=== PATIENT | female | born 1980 | race Caucasian/White ===

== ENCOUNTER 2016-06-28 16:00 | Emergency (ER) | payer OTHER ==
--- NOTE | ~2016-06-28 | CR58 ---
[facility] A Service of [facility] & [facility] RADIOLOGY TEXT RESULTS PATIENT: AUNG RAMIREZ LOCATION: CFTX : 79 UNIT #: [id number] AGE: [address]: KATARZYNA MONTELONGO SEX: F ORDER DR: [id number] [facility] [address] [place], [place] [address] [id number] E MR#: [id number] Acc #: [id number] NAME: AUNG RAMIREZ : 1980 SEX: F STUDY DATE/TIME: 06/28/2016 15:36 UNIT: CFTX ROOM: STUDY DESCRIPTION: CR Cervical Spine 2 or 3 Views Attending Physician: Katarzyna Montelongo Aprn Ordering Physician: Ed Doctor [id number] [facility] Primary Care Physician: Primary Care Physician No MEDICAL IMAGING REPORT This report is preliminary unless electronic signature is present EXAM Cervical spine 3 views HISTORY Neck pain after fall and neck injury today. FINDINGS AP and lateral projections of the cervical spine show satisfactory preservation of the cervical lordosis. The cervical soft tissues are normal. All anterior and posterior elements in the cervical area are anatomically normal without identifiable fracture, dislocation, malignant lytic or sclerotic change, or arthritis. There is no congenital defect apparent. IMPRESSION Normal cervical spine. Dictated by... Shashi Loredo M.D. THIS IS AN ELECTRONICALLY VERIFIED REPORT Shashi Loredo M.D. at 06/29/2016 1:55 PM TIFFANY/joaquin TD: 06/29/2016 09:05 JOB #: [id number] MEDICAL IMAGING REPORT COPY
--- NOTE | ~2016-06-28 | CR282 ---
[facility] A Service of [facility] & [facility] RADIOLOGY TEXT RESULTS PATIENT: AUNG RAMIREZ LOCATION: CFTX : 79 UNIT #: [id number] AGE: [address]: KATARZYNA MONTELONGO SEX: F ORDER DR: [id number] [facility] [address] [place], [place] [address] [id number] E MR#: [id number] Acc #: [id number] NAME: AUNG RAMIREZ : 1980 SEX: F STUDY DATE/TIME: 06/28/2016 15:45 UNIT: CFTX ROOM: STUDY DESCRIPTION: CR Wrist Min 3 View Rt Attending Physician: Katarzyna Montelongo Aprn Ordering Physician: Ed Doctor [id number] [facility] Primary Care Physician: Primary Care Physician No MEDICAL IMAGING REPORT This report is preliminary unless electronic signature is present EXAM Right wrist 3 views HISTORY Wrist pain after a fall and wrist injury today. FINDINGS Wrist evaluation in multiple projections shows normal mineralization of the bony structures about the wrist and satisfactory articular relationship of the radius and ulna to the proximal carpal row and of the distal carpal segments to the metacarpal bases. There is no indication of fracture or dislocation, and no soft tissue radiopaque foreign body is present. No congenital defects are apparent. IMPRESSION Normal right wrist. Dictated by... Shashi Loredo M.D. THIS IS AN ELECTRONICALLY VERIFIED REPORT Shashi Loredo M.D. at 06/29/2016 1:55 PM TIFFANY/joaquin TD: 06/29/2016 09:11 JOB #: [id number] MEDICAL IMAGING REPORT COPY
--- NOTE | ~2016-06-28 | CT71 ---
[facility] A Service of [facility] / [facility] RADIOLOGY TEXT RESULTS PATIENT: AUNG RAMIREZ LOCATION: CFTX : 79 UNIT #: [id number] AGE: [address]: KATARZYNA MONTELONGO SEX: F ORDER DR: [id number] [facility] [address] [place], [place] [address] [id number] E MR#: [id number] Acc #: [id number] NAME: AUNG RAMIREZ : 1980 SEX: F STUDY DATE/TIME: 06/28/2016 18:17 UNIT: CFTX ROOM: STUDY DESCRIPTION: CT Head Wo Contrast Attending Physician: Katarzyna Montelongo Aprn Ordering Physician: Ed Doctor [id number] [facility] Primary Care Physician: Primary Care Physician No MEDICAL IMAGING REPORT This report is preliminary unless electronic signature is present EXAM CT head, 06/28/2016 HISTORY Fall earlier today. Denies loss of consciousness. Fell 6 hours ago. Injury to back of head. No loss of consciousness. Cerebral aneurysm, left middle cerebral artery. TECHNIQUE This CT exam was performed with one or more of the following radiation dose reduction techniques: automatic exposure control, adjustment of mA and/or kV according to patient size, and iterative reconstruction. FINDINGS CT head performed skull base through vertex without intravenous contrast. Comparison 04/21/2012. Brainstem unremarkable. Cerebellum and cerebral hemispheres show normal kaba matter-white matter differentiation. No hemorrhage. No evidence of acute cortical ischemia. Midline structures are nondisplaced. Basal ganglia are intact. The ventricles, cisterns, sulci normal in size and contour. No intra or extraaxial mass effect or abnormal intracranial fluid collection. The visualized intraorbital soft tissues are unremarkable. The visualized paranasal sinuses and mastoid air cells are clear. The extracranial soft tissues show no definite acute abnormality. IMPRESSION 1. Brain appears normal. If patient has ongoing neurologic symptoms, consider followup imaging. 2. No fracture. 3. No indication of extracranial traumatic soft tissue abnormality. Dictated by... Duong Cleary M.D. [facility] A Service [facility] RADIOLOGY TEXT RESULTS PATIENT: AUNG RAMIREZ LOCATION: CFTX : 79 UNIT #: [id number] AGE: [address]: KATARZYNA MONTELONGO SEX: F ORDER DR: THIS IS AN ELECTRONICALLY VERIFIED REPORT Duong Cleary M.D. at 06/30/2016 4:25 PM Liliana TD: 06/29/2016 11:00 JOB #: [id number] MEDICAL IMAGING REPORT COPY
--- NOTE | ~2016-06-28 | CR142 ---
[facility] A Service of [facility] & [facility] RADIOLOGY TEXT RESULTS PATIENT: AUNG RAMIREZ LOCATION: CFTX : 79 UNIT #: [id number] AGE: [address]: KATARZYNA MONTELONGO SEX: F ORDER DR: [id number] [facility] [address] [place], [place] [address] [id number] E MR#: [id number] Acc #: [id number] NAME: AUNG RAMIREZ : 1980 SEX: F STUDY DATE/TIME: 06/28/2016 15:43 UNIT: CFTX ROOM: STUDY DESCRIPTION: CR Hand Min 3 Views Rt Attending Physician: Katarzyna Montelongo Aprn Ordering Physician: Ed Doctor [id number] [facility] Primary Care Physician: Primary Care Physician No MEDICAL IMAGING REPORT This report is preliminary unless electronic signature is present EXAM Right hand 3 views HISTORY Hand pain after a fall today. FINDINGS AP, lateral, and oblique projections of the hand show good mineralization with normal carpal, metacarpal, and phalangeal anatomy without indication of fracture, dislocation, or soft tissue radiopaque foreign body. IMPRESSION Normal right hand. Dictated by... Shashi Loredo M.D. THIS IS AN ELECTRONICALLY VERIFIED REPORT Shashi Loredo M.D. at 06/29/2016 1:55 PM Terrie TD: 06/29/2016 09:10 JOB #: [id number] MEDICAL IMAGING REPORT COPY
--- NOTE | ~2016-06-28 | CR133 ---
[facility] A Service of [facility] & [facility] RADIOLOGY TEXT RESULTS PATIENT: AUNG RAMIREZ LOCATION: CFTX : 78 UNIT #: [id number] AGE: [address]: KATARZYNA MONTELONGO SEX: F ORDER DR: [id number] [facility] [address] [place], [place] [address] [id number] E MR#: [id number] Acc #: [id number] NAME: AUNG RAMIREZ : 1980 SEX: F STUDY DATE/TIME: 06/28/2016 15:40 UNIT: CFTX ROOM: STUDY DESCRIPTION: CR Forearm 2 View Rt Attending Physician: Katarzyna Montelongo Aprn Ordering Physician: Ed Doctor [id number] [facility] Primary Care Physician: Primary Care Physician No MEDICAL IMAGING REPORT This report is preliminary unless electronic signature is present EXAM Right forearm 2 views HISTORY Arm pain after a fall and arm injury today. FINDINGS AP and lateral views of the forearm show no evidence of fracture or destructive bone lesion. No periosteal elevation is seen. No radiodense foreign bodies are noted. Adjacent soft tissue structures are normal. IMPRESSION Normal right forearm. Dictated by... Shashi Loredo M.D. THIS IS AN ELECTRONICALLY VERIFIED REPORT Shashi Loredo M.D. at 06/29/2016 1:55 PM Terrie TD: 06/29/2016 09:10 JOB #: [id number] MEDICAL IMAGING REPORT COPY
[~2016-06-28 16:00] MED LIST: ALBUTEROL17 GM INH; ANTIVERT PO; BIRTH CONTROL PILL; FLONASE16 GM; HYDROCHLORATHIAZIDE; IMODIUM2 MG PO; PHENERGAN25 M1 PO; PREDNISONE PO; TESSALON200 MG PO; ULTRAM PO; ZITHROMAX PO; ZOFRAN ODT4 MG PO
== END 2016-06-28 19:23 | disposition home or self-care (01) ==
LOC: CFTX 16:00
DX: S63.501A Unspecified sprain of right wrist, initial encounter (principal); S50.11XA Contusion of right forearm, initial encounter; S60.221A Contusion of right hand, initial encounter; Z88.0 Allergy status to penicillin; Z88.2 Allergy status to sulfonamides; W01.0XXA Fall on same level from slipping, tripping and stumbling without subsequent striking against object, initial encounter; Y92.009 Unspecified place in unspecified non-institutional (private) residence as the place of occurrence of the external cause
CPT/HCPCS: 29260; 70450; 72040; 73090; 73110; 73130; 84703; 99284

== ENCOUNTER 2016-08-23 16:08 | Emergency (ER) | payer OTHER ==
--- NOTE | ~2016-08-23 | CT2 ---
[facility] A Service of [facility] & [facility] RADIOLOGY TEXT RESULTS PATIENT: AUNG RAMIREZ LOCATION: [facility] : 79 UNIT #: [id number] AGE: [address]: Jonathan Branham MD SEX: F ORDER DR: [id number] [facility] [address] [place], [place] [address] [id number] E MR#: [id number] Acc #: [id number] NAME: AUNG RAMIREZ : 1980 SEX: F STUDY DATE/TIME: 08/23/2016 17:29 UNIT: CRISTINA ROOM: STUDY DESCRIPTION: CT Abd and Pelv W Cont Attending Physician: Jonathan Branham M.D. Ordering Physician: Jonathan Branham M.D. Primary Care Physician: No Primary Care Physician MEDICAL IMAGING REPORT This report is preliminary unless electronic signature is present EXAM CT abdomen and pelvis without IV contrast. COMPARISON April 30, 2015. INDICATION 36-year-old female with nausea, emesis, diarrhea and periumbilical abdominal pain for [address] exam was performed with one or more of the following radiation dose reduction techniques: automatic exposure control, adjustment of mA and/or kV according to patient size, and iterative reconstruction. FINDINGS Axial CT imaging of the abdomen and pelvis was performed after IV administration of 100 L of Isovue-370. Coronal and sagittal reformats were constructed. Small fat-containing umbilical hernia without evidence of inflammatory change. No acute fractures or suspicious osseous lesions. No acute findings of the imaged lower chest. There are findings suggestive of hepatic steatosis. There is mild splenomegaly with splenic length of 15.9 cm. There is hepatomegaly with hepatic length of 23.5 cm. Findings are suggestive of hepatic steatosis. There has been prior cholecystectomy. Normal biliary caliber. Pancreas, adrenal glands and kidneys within normal limits. No hydroureter. Urinary bladder is unremarkable. No adnexal masses. There is hyperdense material seen throughout the colon, perhaps due to recent ingestion of medication. Hyperdense material is also seen within the appendix which is otherwise normal. There is no evidence of bowel obstruction. No free fluid or pneumoperitoneum. Normal caliber of the abdominal aorta, with patency its main branches. No evidence of venous thrombosis. There are scattered mesenteric lymph nodes which are not pathologically enlarged by CT size [facility] A Service of [facility] RADIOLOGY TEXT RESULTS PATIENT: AUNG RAMIREZ LOCATION: [facility] : 79 UNIT #: [id number] AGE: [address]: Jonathan Branham MD SEX: F ORDER DR: criteria. However, there is 1 single enlarged 1.3 cm short axis mesenteric lymph node in the left upper quadrant of the abdomen which is seen on comparison CT of April 30, 2015, measuring up to 1.3 cm short axis. Appears to be mildly enlarged since that time, but I would favor reactive process. The uterus is present and unremarkable. IMPRESSION 1. No acute findings in the abdomen, pelvis or imaged lower chest. 2. Prior cholecystectomy. 3. Hepatomegaly and steatosis. Hepatic length is approximately 24 cm. There is mild splenomegaly. No evidence of cirrhosis. 4. Single, superior left mesenteric lymph node measures up to 1.3 cm short axis, minimally increased in size from April 30, 2015 and likely reactive. Dictated by... Tho Mendez M.D. THIS IS AN ELECTRONICALLY VERIFIED REPORT Tho Mendez M.D. at 08/25/2016 3:37 PM Yady TD: 08/23/2016 20:25 JOB #: [id number] MEDICAL IMAGING REPORT Page 1 of 1 COPY
[2016-08-23 16:32] LABS: URINE SOURCE CLEAN CATCH
[2016-08-23 16:36] LABS: URINE APPEARANCE CLOUDY; URINE BILIRUBIN NEG (NEG); URINE BLOOD NEG (NEG); URINE COLOR DK YELLOW; URINE GLUCOSE NEG (NEG); URINE KETONE NEG (NEG); URINE LEUKOCYTE ESTERASE TRACE (NEG); URINE NITRATE NEG (NEG); URINE PH 5.5 (5-8); URINE PROTEIN NEG (NEG)
[2016-08-23 16:37] LABS: CULTURE INDICATED? YES; URINE BACTERIA AUWI 1+ (NEGATIVE); URINE SQUAMOUS EPITHELIAL CELL MOD /[HPF]
[2016-08-23 16:38] LABS: BASOPHIL% 1.1 % (0-2.5); DIFF IND NO; EOSINOPHIL# 0.2 X10e3 (0-0.7); EOSINOPHIL% 4.5 % (0.0-7.0); HEMATOCRIT 38.8 % (35.0-45.0); HEMOGLOBIN 13.1 gm/dL (12.0-16.0); LYMPHOCYTE# 1.7 X10e3 (1.0-3.5); LYMPHOCYTE% 40.8 % (17.0-45.0); MEAN CELL VOLUME 88.2 FL (83-96); MEAN CORPUSCULAR HEMOGLOBIN 29.7 PG (28-34); MEAN CORPUSCULAR HGB CONC 33.6 g/dL (30-36); MEAN PLATELET VOLUME 6.8 FL (6.5-11.5); MONOCYTE# 0.5 X10e3 (0-1.0); MONOCYTE% 11.8 % (3.0-12.0); NEUTROPHIL# 1.7 X10e3 (1.5-7.1); NEUTROPHIL% 41.8 % (40-75); PLATELET COUNT 264 X10e3 (140-420); RED CELL DISTRIBUTION WIDTH 13.2 % (11.0-15.5); WHITE BLOOD COUNT 4.1 X10e3 (4.0-10.5)
[2016-08-23 17:05] LABS: BILIRUBIN, DIRECT 0.1 mg/dL (0.0-0.2); BILIRUBIN,INDIRECT 0.7 mg/dL (0.0-0.9); BILIRUBIN,TOTAL 0.8 mg/dL (0.2-2.0); BUN/CREATININE RATIO 8.33; CALCIUM SERUM 8.9 mg/dL (8.4-10.2); CREATININE SERUM 0.6 mg/dL (0.6-1.4); GLOM FILT RATE Estimated 116.4 mL/min (>60); PROTEIN TOTAL SERUM 7.2 g/dL (6.0-8.3)
== END 2016-08-23 19:06 | disposition home or self-care (01) ==
LOC: CED 16:08
PROVIDERS: Emergency Medicine
DX: N30.00 Acute cystitis without hematuria (principal); F41.9 Anxiety disorder, unspecified; G43.909 Migraine, unspecified, not intractable, without status migrainosus; N80.9 Endometriosis, unspecified; Z90.49 Acquired absence of other specified parts of digestive tract; Z90.89 Acquired absence of other organs; Z88.0 Allergy status to penicillin; Z88.2 Allergy status to sulfonamides
CPT/HCPCS: 36415; 74177; 80048; 80076; 81003; 82150; 83690; 84703; 85025; 87086; 87088; 87186; 96361; 96374; 96375; 99284; J1885; J2270; J2405; Q9967

== ENCOUNTER 2016-09-22 19:18 | Emergency (ER) | payer OTHER ==
[2016-09-22 20:14] LABS: URINE SOURCE CLEAN CATCH
[2016-09-22 20:18] LABS: BASOPHIL# 0.1 X10e3 (0-0.3); BASOPHIL% 0.7 % (0-2.5); EOSINOPHIL# 0.3 X10e3 (0-0.7); HEMATOCRIT 40.7 % (35.0-45.0); HEMOGLOBIN 13.4 gm/dL (12.0-16.0); LYMPHOCYTE# 0.9 X10e3 (1.0-3.5); LYMPHOCYTE% 6.7 % (17.0-45.0); MEAN CELL VOLUME 89.4 FL (83-96); MEAN CORPUSCULAR HEMOGLOBIN 29.4 PG (28-34); MEAN CORPUSCULAR HGB CONC 32.9 g/dL (30-36); MEAN PLATELET VOLUME 7.1 FL (6.5-11.5); MONOCYTE# 0.8 X10e3 (0-1.0); MONOCYTE% 5.9 % (3.0-12.0); NEUTROPHIL# 12.1 X10e3 (1.5-7.1); NEUTROPHIL% 84.7 % (40-75); PLATELET COUNT 314 X10e3 (140-420); RED BLOOD COUNT 4.55 X10e (3.90-5.30); RED CELL DISTRIBUTION WIDTH 13.9 % (11.0-15.5); WHITE BLOOD COUNT 14.3 X10e3 (4.0-10.5)
[2016-09-22 20:18] LABS: URINE APPEARANCE CLEAR; URINE BILIRUBIN NEG (NEG); URINE BLOOD NEG (NEG); URINE COLOR YELLOW; URINE GLUCOSE NEG (NEG); URINE KETONE NEG (NEG); URINE LEUKOCYTE ESTERASE TRACE (NEG); URINE NITRATE NEG (NEG); URINE PROTEIN NEG (NEG); URINE SPECIFIC GRAVITY 1.029 (1.003-1.035)
[2016-09-22 20:19] LABS: DIFF IND NO
[2016-09-22 20:20] LABS: URBCS1 AUWI 0-2 /[HPF] (0-2); URINE BACTERIA AUWI NEG (NEGATIVE); URINE SQUAMOUS EPITHELIAL CELL OCC /[HPF]
[2016-09-22 20:23] LABS: CULTURE INDICATED? NO
[2016-09-22 20:41] LABS: ALBUMIN SERUM 4.3 g/dL (3.5-5.0); BILIRUBIN, DIRECT 0.2 mg/dL (0.0-0.2); BILIRUBIN,INDIRECT 0.6 mg/dL (0.0-0.9); BILIRUBIN,TOTAL 0.8 mg/dL (0.2-2.0); CREATININE SERUM 0.6 mg/dL (0.6-1.4); GLOM FILT RATE Estimated 116.4 mL/min (>60); POTASSIUM 3.6 mmol/L (3.5-5.1); PROTEIN TOTAL SERUM 7.4 g/dL (6.0-8.3)
[2016-09-22 21:32] LABS: POC - TROPONIN <0.05 ng/mL (<=0.05)
== END 2016-09-22 22:40 | disposition home or self-care (01) ==
LOC: CED 19:18
PROVIDERS: Emergency Medicine
DX: K52.9 Noninfective gastroenteritis and colitis, unspecified (principal); Z88.0 Allergy status to penicillin; Z88.2 Allergy status to sulfonamides
CPT/HCPCS: 36415; 80048; 80076; 81003; 82553; 83690; 84484; 84703; 85025; 87045; 87427; 87493; 87899; 96361; 96372; 96374; 96375; 99284; J0500; J1885; J2405; J2550